=== PATIENT | female | born 1955 | race Hispanic/Latino ===

== ENCOUNTER 2017-01-21 16:23 | Emergency (ER) | payer BC ==
--- NOTE | 2017-01-21 18:09 | RAD ---
FOUR VIEWS LEFT KNEE: Indication: Left knee pain. IMPRESSION: No acute fracture. Left knee appears radiographically normal. POS: [facility]
--- NOTE | 2017-01-21 18:13 | ULT ---
DOPPLER VENOUS ULTRASOUND OF LEFT LOWER EXTREMITY: Indication: Left knee pain. TECHNIQUE: Shore scale, color Doppler, and vascular duplex with spectral analysis was performed of the deep venou s structures of the left lower extremities. The common femoral vein, superficial femoral vein, poplit eal vein, posterior tibial vein, proximal greater saphenous, and proximal profunda veins were assesse d bilaterally. FINDINGS: There is normal compression, flow, and augmentation within the deep venous structures left lower extr emity. IMPRESSION: No evidence of DVT within the left lower extremity. POS: [facility]
[2017-01-21] MEDS ORDERED: traMADol HCl 50 MG TAB ONE (18:20)
== END 2017-01-21 18:24 | disposition home or self-care (01) ==
LOC: ERS 16:23
DX: M25.562 Pain in left knee (principal); E78.5 Hyperlipidemia, unspecified

== ENCOUNTER 2017-02-24 14:47 | Emergency (ER) | payer BC | END 2017-02-24 15:50 | disposition home or self-care (01) | LOC: ERS 14:47 | DX: K04.7 Periapical abscess without sinus (principal); K02.9 Dental caries, unspecified; K03.81 Cracked tooth; I10 Essential (primary) hypertension | CPT/HCPCS: 99283 ==

== ENCOUNTER 2018-07-14 18:42 | Emergency (ER) | payer BC ==
[2018-07-14] MEDS ORDERED: Bupivacaine 0.5% 10 ML VIAL ONE (18:52)
== END 2018-07-14 19:24 | disposition home or self-care (01) ==
LOC: SCSER 18:42
DX: L03.012 Cellulitis of left finger (principal); E11.9 Type 2 diabetes mellitus without complications; E78.5 Hyperlipidemia, unspecified; I10 Essential (primary) hypertension; Z79.84 Long term (current) use of oral hypoglycemic drugs
CPT/HCPCS: 10060; J3490